=== PATIENT | female | born 1980 | race Caucasian/White ===

== ENCOUNTER → 2022-02-15 16:48 | Outpatient (CLI) | payer SELFPAY ==
--- NOTE | 2022-02-15 | DI.RAD.S_ITS ---
PROCEDURE: XR ANKLE RT MIN 3V INDICATIONS: ANKLE SWELLING S/P FALL ON TUES TECHNIQUE: 3 views of the ankle were acquired. COMPARISON: None. FINDINGS: Bones: No fractures or dislocations. Ankle mortise is normally aligned. No suspicious bony lesions. Soft tissues: No tibiotalar joint effusion. Achilles tendon appears normal. IMPRESSION: No acute fracture. No osseous lesion. If symptoms and/or clinical suspicion for pathology persist, further assessment with repeat, or advanced imaging (e.g., CT, MRI, or bone scan) may be helpful for further assessment. Dictated by: Jered Granados M.D. on 02/16/2022 at 10:28 Transcribed by: OLE on 02/16/2022 at 10:34 Approved by: Jered Granados M.D. on 02/16/2022 at 14:08
== END ==
PROVIDERS: Family Provider Family Medicine; PCP Family Medicine; Referring Provider Family Medicine; Visit Provider Family Medicine
DX: S93.401A Sprain of unspecified ligament of right ankle, initial encounter (principal); W19.XXXA Unspecified fall, initial encounter
CPT/HCPCS: 73610